=== PATIENT | male | born 1985 | race African-American/Black ===

== ENCOUNTER 2023-04-05 11:22 | Emergency (ER) | payer SELFPAY ==
[2023-04-05 12:56] LABS: Absolute Lymphocytes (CBC) 2.6 K/uL (0.7-4.9); Hematocrit 48.2 % (39.6-49.0); Lymphocytes % 32.2 % (15.3-44.8); MCV 92.1 fL (80-100); MPV 8.8 fL (7.6-11.3); Platelets 171 thou/uL (152-406); RBC Red Blood Cell Count 5.23 M/uL (4.33-5.43)
[2023-04-05 13:08] LABS: Albumin 3.8 g/dL (3.4-5.0); Bilirubin Total 0.4 mg/dL (0.2-1.0); Potassium 4.5 mEq/L (3.5-5.1); Protein, Total 6.6 g/dL (6.4-8.2)
--- NOTE | 2023-04-05 14:36 | EDPHYS ---
Physician Documentation [facility] Name: Tati Quevedo Age: 37 yrs Sex: Male : 1985 Arrival Date: 04/05/2023 Time: 11:22 Bed Treatment Private MD: ED Physician Marcos Zavaleta HPI: 04/05 12:14 This 37 yrs old Black Male presents to ER via Ambulatory with complaints of Check Up. ec2 12:14 Patient arrives today for general wellness check. States that several her problem today ec2 is that he has diffuse itching, states that he believes is related to his cats. States he recently had a cat approximately 2 weeks ago and states he is feeling paresthesias. Patient reports no abdominal pain, no nausea or vomiting, denies any other concerns.. Historical: - Allergies: 11:35 No Known Allergies; nj1 - PMHx: 11:35 Seizure; nj1 - Immunization history:: Client reports receiving the 2nd dose of the Covid vaccine. - Social history:: Smoking status: Reported history of juuling and/or vaping. ROS: 12:14 Constitutional: as per hpi ec2 Exam: 12:14 Constitutional: GEN: NAD Head: atraumatic Eyes: EOMI Ears: External ears are ec2 normal. CV: regular rate LUNGS: no respiratory distress ABD: non-distended SKIN: no evidence of rashes MSK: no evidence of trauma NEURO: moves all extremities equally Vital Signs: 11:32 BP 130 / 83; Pulse 88; Resp 17; Temp 98.5; Pulse Ox 100% ; Weight 88.9 kg; Height 5 ft. nj1 8 in. ; 11:32 Body Mass Index 29.80 (88.90 kg, 172.72 cm) nj1 MDM: 12:05 Patient medically screened. ec2 12:14 Data reviewed: vital signs. ED course: Patient arrives today due to concern for itching ec2 as well as a wellness evaluation. Examination remarkable for well-appearing nontoxic dividual's otherwise in no acute distress. Will obtain basic lab work to evaluate for electrolyte disturbances or organ dysfunction.. 12:47 ED course: Patient also expresses concern for HIV, unclear for reasons, will add on ec2 additional STI testing as patient has been intentionally or unintentionally vague about his symptoms and his concerns.. 13:11 ED course: Metabolic profile is reassuring. Reassuring CBC. . ec2 14:34 ED course: On assessment patient is well-appearing in no acute distress, in regards to ec2 the patient's itching I will start him on Atarax as well as prednisone, patient will return for results of his infectious workup.. 04/05 12:14 Order name: CBC with Diff; Complete Time: 13:10 ec2 04/05 12:14 Order name: CMP; Complete Time: 13:10 ec2 04/05 12:30 Order name: HIVc ec2 04/05 12:30 Order name: Hep Panel ec2 04/05 12:30 Order name: Rpr ec2 04/05 12:30 Order name: GC (Martin/Chl) Probe URINE ec2 Administered Medications: No medications were administered Disposition Summary: 04/05/23 14:35 Discharge Ordered Notes: Location: Home ec2 Condition: Stable ec2 Diagnosis - Allergic contact dermatitis due to animal (cat) (dog) dander ec2 Followup: ec2 - With: Private Physician - When: - Reason: Recheck today's complaints Discharge Instructions: - Discharge Summary Sheet ec2 - Allergies, Adult ec2 Forms: - Medication Reconciliation Form ec2 - Thank You Letter ec2 - Antibiotic Education ec2 - Prescription Opioid Use ec2 - Patient Portal Instructions ec2 - Leadership Thank You Letter ec2 Prescriptions: - Hydroxyzine HCl 25 mg Oral Tablet - take 1 tablet ORAL route every 6 hours As needed; 30 tablet; Refills: 0, ec2 Product Selection Permitted - Prednisone 20 mg Oral Tablet - take 1 tablet ORAL route once daily for 5 days; 5 tablet; Refills: 0, Product ec2 Selection Permitted Signatures: Dispatcher [employer] Tait Clay RN RN nj1 Marcos Zavaleta MD MD ec2
--- NOTE | 2023-04-05 14:36 | ER ---
Nurse's Notes [facility] Name: Tati Quevedo Age: 37 yrs Sex: Male : 1985 Arrival Date: 04/05/2023 Time: 11:22 Bed Treatment Private MD: Diagnosis: Allergic contact dermatitis due to animal (cat) (dog) dander Presentation: 04/05 11:32 Chief complaint: Patient states: I want to get a check up "everything". No problems or nj1 symptoms. Tingling/itching on chest, given abx for it, will go away but then it will come back again. Sometimes it also "on my legs". Denies itching/tingling sensation right now. States this has been going on for a few weeks. Coronavirus screen: Vaccine status: Patient reports receiving the 2nd dose of the covid vaccine. Ebola Screen: Patient denies travel to an Ebola-affected area in the 21 days before illness onset. Initial Sepsis Screen: Does the patient meet any 2 criteria? No. Patient's initial sepsis screen is negative. Does the patient have a suspected source of infection? No. Patient's initial sepsis screen is negative. Risk Assessment: Do you want to hurt yourself or someone else?. Onset of symptoms was February 2023. 11:32 Method Of Arrival: Ambulatory nj1 11:32 Acuity: MARKUS 4 nj1 Triage Assessment: 14:57 General: Appears in no apparent distress. Behavior is cooperative, appropriate for age, bp anxious. Pain: Denies pain. Historical: - Allergies: 11:35 No Known Allergies; nj1 - PMHx: 11:35 Seizure; nj1 - Immunization history:: Client reports receiving the 2nd dose of the Covid vaccine. - Social history:: Smoking status: Reported history of juuling and/or vaping. Screenin:57 [facility] ED Fall Risk Assessment (Adult) History of falling in the last 3 months, bp including since admission No falls in past 3 months (0 pts). Abuse screen: Denies threats or abuse. Denies injuries from another. Nutritional screening: No deficits noted. Tuberculosis screening: No symptoms or risk factors identified. Vital Signs: 11:32 BP 130 / 83; Pulse 88; Resp 17; Temp 98.5; Pulse Ox 100% ; Weight 88.9 kg; Height 5 ft. nj1 8 in. ; 11:32 Body Mass Index 29.80 (88.90 kg, 172.72 cm) [facility] ED Course: 11:28 Patient arrived in ED. mg5 11:34 Marcos Zavaleta MD is Attending Physician. ec2 11:35 Triage completed. nj1 11:36 Arm band placed on right wrist. nj1 11:59 Rafael Leigh, RN is Primary Nurse. bp 14:57 Patient has correct armband on for positive identification. bp 14:57 No provider procedures requiring assistance completed. Patient did not have IV access bp during this emergency room visit. Administered Medications: No medications were administered Medication: 14:57 VIS not applicable for this client. bp Outcome: 14:35 Discharge ordered by . ec2 14:57 Discharged to home ambulatory, bp 14:57 Condition: stable 14:57 Discharge instructions given to patient, Instructed on discharge instructions, follow up and referral plans. medication usage, Demonstrated understanding of instructions, follow-up care, medications, Prescriptions given X 2, 14:58 Patient left the ED. bp Signatures: Rafael Leigh, RN RN bp Tati Navarro, RN RN [address] Marcos Zavaleta MD MD 2
[2023-04-05 14:54] LABS: Hepatitis B Core IgM Nonreactive (Nonreactive); Hepatitis B surface AG Interp. Nonreactive (Nonreactive); Hepatitis C Virus Ab Nonreactive (Nonreactive)
[2023-04-05 15:08] VITALS: BP 130/83; TEMP 98.5; O2SAT 100
[2023-04-06 06:16] LABS: RPR (Rapid Plasma Reagin) NON-REACT (NON-REACT)
[2023-04-08 08:56] LABS: C.trachomatis RNA,TMA Not Detected (Not Detected)
== END 2023-04-05 14:58 | disposition home or self-care (01) ==
LOC: ER 11:22
DX: L23.81 Allergic contact dermatitis due to animal (cat) (dog) dander (principal)
CPT/HCPCS: 36415; 80053; 80074; 85025; 86592; 87389; 87490; 87590; 99283

== ENCOUNTER → 2023-05-18 | Emergency (ER) | payer SELFPAY ==
[~2023-05-18] MED LIST: KETOROLAC 30 MG/ML INJ ONE; LORazepam 2 MG/ML VIAL ONE; NA CHLORIDE 0.9% 1,000 ML ONE
[2023-05-18 14:53] LABS: Absolute Lymphocytes (CBC) 2.5 K/uL (0.7-4.9); Hematocrit 45.8 % (39.6-49.0); Lymphocytes % 36.2 % (15.3-44.8); MPV 8.4 fL (7.6-11.3); Platelets 226 thou/uL (152-406); RBC Red Blood Cell Count 5.14 M/uL (4.33-5.43)
[2023-05-18 15:12] LABS: Potassium 3.8 mEq/L (3.5-5.1); Troponin High Sensitivity 23.3 pg/mL (<58.9)
--- NOTE | 2023-05-18 15:19 | RAD REPORT ---
EXAM DESCRIPTION: RAD - Chest Single View - 05/18/2023 3:14 pm CLINICAL HISTORY: CHEST PAIN Chest pain. COMPARISON: No comparisons FINDINGS: Portable technique limits examination quality. The lungs are grossly clear. The heart is normal in size. No displaced fractures. IMPRESSION: No acute intrathoracic process suspected.
[2023-05-18 15:21] LABS: Barbiturates NEGATIVE (NEGATIVE); Benzodiazepines NEGATIVE (NEGATIVE); Cocaine NEGATIVE (NEGATIVE); METHAMPHETAM NEGATIVE (NEGATIVE); Methadone NEGATIVE (NEGATIVE); Opiates NEGATIVE (NEGATIVE); Phencyclidine NEGATIVE (NEGATIVE); THC Cannibis POSITIVE (NEGATIVE)
--- NOTE | 2023-05-18 19:24 | ER ---
Nurse's Notes [facility] Name: Tati Quevedo Age: 37 yrs Sex: Male : 1985 Arrival Date: 05/18/2023 Time: 14:36 Bed 7 Private MD: Diagnosis: Chest pain, unspecified Presentation: 05/18 14:38 Chief complaint: EMS states: Left sided chest pain that started this morning. rs5 Coronavirus screen: At this time, the client does not indicate any symptoms associated with coronavirus-19. Ebola Screen: No symptoms or risks identified at this time. Initial Sepsis Screen: Does the patient meet any 2 criteria? No. Patient's initial sepsis screen is negative. Does the patient have a suspected source of infection? No. Patient's initial sepsis screen is negative. Risk Assessment: Do you want to hurt yourself or someone else? Patient reports no desire to harm self or others. Onset of symptoms was May 18, 2023. Care prior to arrival: Medication(s) given: ASA, 81 mg, x 4, IV initiated. 20 GA, in the left antecubital area. 14:38 Method Of Arrival: EMS: [facility] rs5 14:38 Acuity: MARKUS 3 rs5 Historical: - Allergies: 14:40 No Known Allergies; ld1 - PMHx: 14:40 Seizure; ld1 - PSHx: 14:40 None; ld1 - Immunization history:: Adult Immunizations up to date. - Social history:: Smoking status: Patient denies any tobacco usage or history of. Patient/guardian denies using alcohol. Screenin:40 [facility] ED Fall Risk Assessment (Adult) History of falling in the last 3 months, ld1 including since admission No falls in past 3 months (0 pts). Abuse screen: Denies threats or abuse. Denies injuries from another. Nutritional screening: No deficits noted. Tuberculosis screening: No symptoms or risk factors identified. Assessment: 14:39 General: Appears in no apparent distress. comfortable, Behavior is calm, cooperative, ld1 appropriate for age. Pain: Complains of pain in chest Pain does not radiate. Pain currently is 8 out of 10 on a pain scale. Quality of pain is described as throbbing, Pain began 1 hour ago. Is intermittent. Neuro: Level of Consciousness is awake, alert, obeys commands, Oriented to person, place, time, situation. Cardiovascular: Reports chest pain, Capillary refill < 3 seconds Patient's skin is warm and dry. Rhythm is sinus rhythm Chest pain is described as mild. Respiratory: Airway is patent Respiratory effort is even, unlabored. GI: Abdomen is flat, non-distended. : No signs and/or symptoms were reported regarding the genitourinary system. EENT: No signs and/or symptoms were reported regarding the EENT system. Derm: No signs and/or symptoms reported regarding the dermatologic system. Musculoskeletal: No signs and/or symptoms reported regarding the musculoskeletal system. 14:40 Reassessment: Pt states "I get the pain, but just sometimes, it comes and goes". rs5 16:50 Reassessment: Patient and/or family updated on plan of care and expected duration. Pain rs5 level reassessed. Patient is alert, oriented x 3, equal unlabored respirations, skin warm/dry/pink. Patient denies pain at this time. 17:59 Reassessment: No changes from previously documented assessment. rs5 18:30 Reassessment: Patient and/or family updated on plan of care and expected duration. Pain rs5 level reassessed. Patient is alert, oriented x 3, equal unlabored respirations, skin warm/dry/pink. Pain: Denies pain. Cardiovascular: Rhythm is regular. Respiratory: Respiratory effort is even, unlabored, Respiratory pattern is regular, symmetrical. 19:57 Reassessment: Patient appears in no apparent distress at this time. Patient and/or jb4 family updated on plan of care and expected duration. Pain level reassessed. Patient is alert, oriented x 3, equal unlabored respirations, skin warm/dry/pink. Vital Signs: 14:38 BP 148 / 97; Pulse 88; Resp 18; Temp 98.1(O); Pulse Ox 99% on R/A; rs5 14:40 BP 148 / 97; Pulse 91; Resp 18; Pulse Ox 99% on R/A; ld1 14:40 Pain 7/10; ld1 14:42 Weight 89.81 kg; ld1 14:43 Height 5 ft. 8 in. ; ld1 15:59 BP 139 / 102; Pulse 71; Resp 18; Pulse Ox 97% on R/A; ld1 17:17 BP 142 / 97; Pulse 78; Resp 18; Pulse Ox 99% on R/A; ld1 18:49 BP 118 / 63; Pulse 75; Resp 18; Pulse Ox 100% on R/A; ld1 14:40 Pain Scale: Adult ld1 ED Course: 14:37 Patient arrived in ED. ld1 14:38 Lee Ashby PA is PHCP. cp 14:38 Pasquale Malcolm MD is Attending Physician. cp 14:38 Edilberto Quick RN is Primary Nurse. rs5 14:38 No provider procedures requiring assistance completed. Maintain EMS IV. Dressing ld1 intact. Good blood return noted. Site clean \\T\\ dry. Gauge \\T\\ site: 20G LAC. Patient maintains SpO2 saturation greater than 95% on room air. 14:40 Patient has correct armband on for positive identification. Placed in gown. Bed in low ld1 position. Call light in reach. Side rails up X2. quality assurance monitor final on. Pulse ox on. NIBP on. Door closed. Noise minimized. Warm blanket given. 14:42 Triage completed. rs5 14:43 Arm band placed on right wrist. ld1 15:16 XRAY Chest (1 view) In Process Unspecified. EDMS 18:57 Troponin High Sensitivity Sent. rs5 19:57 IV discontinued, intact, bleeding controlled, No redness/swelling at site. Pressure jb4 dressing applied. Administered Medications: 15:05 Drug: NS 0.9% IV 1000 ml IV at 1 bolus Per protocol; 1000 mL bolus Route: IV; Rate: 1 rs5 bolus; Site: left antecubital; 15:30 Follow up: Response: No adverse reaction rs5 15:05 Drug: Ketorolac IVP 15 mg IVP once Route: IVP; Site: left antecubital; rs5 15:30 Follow up: Response: No adverse reaction; Pain is decreased rs5 15:05 Drug: Ativan IVP 1 mg IVP once Route: IVP; Site: left antecubital; rs5 15:30 Follow up: Response: No adverse reaction; Anxiety decreased rs5 Medication: 14:40 VIS not applicable for this client. ld1 Outcome: 19:24 Discharge ordered by . cp 19:57 Discharged to home via wheelchair, jb4 19:57 Condition: stable 19:57 Discharge instructions given to patient, Instructed on discharge instructions, follow up and referral plans. Demonstrated understanding of instructions, follow-up care, 19:57 Patient left the ED. jb4 Signatures: Dispatcher [employer] EDMS Lee Ashby PA PA cp Bryson, James, RN RN jb4 Mireya Cantrell RN RN ld1 Edilberto Quick RN RN rs5 Corrections: (The following items were deleted from the chart) 16:54 14:39 Pain: Complains of pain in chest Pain does not radiate. Pain currently is 8 out rs5 of 10 on a pain scale. Quality of pain is described as throbbing, Pain began 1 hour ago. Is continuous, ld1
--- NOTE | 2023-05-18 19:24 | EDPHYS ---
Physician Documentation [facility] Name: Tati Quevedo Age: 37 yrs Sex: Male : 1985 Arrival Date: 05/18/2023 Time: 14:36 Bed 7 Private MD: ED Physician Pasquale Malcolm HPI: 05/18 14:55 This 37 yrs old Black Male presents to ER via EMS with complaints of Chest Pain. cp 14:55 The patient or guardian reports chest pain that is located primarily in the anterior cp chest wall, left. 14:55 The pain does not radiate. The chest pain is described as sharp. Duration: The patient cp or guardian reports a single episode, that is still ongoing, and unchanged, started SALES MARKETING DIRECTOR. 14:55 Associated signs and symptoms: Pertinent positives: shortness of breath, Pertinent cp negatives: abdominal pain, cough, lower extremity pain, lower extremity swelling. Severity of pain: in the emergency department the pain is unchanged despite EMS interventions. Historical: - Allergies: 14:40 No Known Allergies; ld1 - PMHx: 14:40 Seizure; ld1 - PSHx: 14:40 None; ld1 - Immunization history:: Adult Immunizations up to date. - Social history:: Smoking status: Patient denies any tobacco usage or history of. Patient/guardian denies using alcohol. ROS: 15:00 Constitutional: Negative for body aches, chills, fever, poor PO intake, cp 15:00 Cardiovascular: Positive for chest pain, Negative for edema, palpitations, cp 15:00 Eyes: Negative for injury, pain, redness, and discharge, cp 15:00 ENT: Negative for drainage from ear(s), ear pain, sore throat, difficulty swallowing, difficulty handling secretions, 15:00 Respiratory: Positive for shortness of breath, Negative for cough, wheezing, 15:00 Abdomen/GI: Negative for abdominal pain, vomiting, diarrhea, constipation, 15:00 Back: Negative for pain at rest, radiated pain, 15:00 Skin: Negative for rash, 15:00 Neuro: Negative for altered mental status, dizziness, headache, loss of consciousness, syncope, weakness, 15:00 All other systems are negative, Exam: 14:47 ECG was reviewed by the Attending Physician. cp 15:05 Constitutional: The patient appears in no acute distress, alert, awake, cp non-diaphoretic, non-toxic, well developed, well nourished, anxious, uncomfortable, 15:05 Head/Face: Normocephalic, atraumatic. cp 15:05 Eyes: Periorbital structures: appear normal, Conjunctiva: normal, no exudate, no injection, Sclera: no appreciated abnormality, Lids and lashes: appear normal, bilaterally, 15:05 ENT: External ear(s): are unremarkable, Nose: is normal, Mouth: Lips: moist, Oral mucosa: pink and intact, moist, Posterior pharynx: is normal, airway is patent, no erythema, no exudate, 15:05 Neck: ROM/movement: is normal, is supple, without pain, no range of motions limitations, 15:05 Chest/axilla: Inspection: normal, Palpation: crepitus, is not appreciated, tenderness, that is moderate, of the anterior aspect of left upper chest, 15:05 Cardiovascular: Rate: normal, Rhythm: regular, Pulses: Pulses are 2+ in right radial artery and left radial artery. Edema: is not appreciated, JVD: is not appreciated, 15:05 Respiratory: the patient does not display signs of respiratory distress, Respirations: normal, no use of accessory muscles, no retractions, labored breathing, is not present, Breath sounds: are clear throughout, no decreased breath sounds, no stridor, no wheezing, 15:05 Abdomen/GI: Inspection: abdomen appears normal, Bowel sounds: active, all quadrants, Palpation: abdomen is soft and non-tender, in all quadrants, 15:05 Back: pain, is absent, ROM is normal, 15:05 Neuro: Orientation: to person, place \T\ time. Mentation: is normal, Vital Signs: 14:38 BP 148 / 97; Pulse 88; Resp 18; Temp 98.1(O); Pulse Ox 99% on R/A; rs5 14:40 BP 148 / 97; Pulse 91; Resp 18; Pulse Ox 99% on R/A; ld1 14:40 Pain 7/10; ld1 14:42 Weight 89.81 kg; ld1 14:43 Height 5 ft. 8 in. ; ld1 15:59 BP 139 / 102; Pulse 71; Resp 18; Pulse Ox 97% on R/A; ld1 17:17 BP 142 / 97; Pulse 78; Resp 18; Pulse Ox 99% on R/A; ld1 18:49 BP 118 / 63; Pulse 75; Resp 18; Pulse Ox 100% on R/A; ld1 14:40 Pain Scale: Adult ld1 MDM: 14:38 Patient medically screened. 19:24 Data reviewed: vital signs, nurses notes, lab test result(s), EKG, radiologic studies, cp plain films, and as a result, I will discharge patient. 19:24 Differential diagnosis: abnormal EKG, acute myocardial infarction, pericarditis, cp pleurisy, pneumonia, pneumothorax, pulmonary embolus. I considered the following discharge prescriptions or medication management in the emergency department Medications were administered in the Emergency Department. See MAR. Independent interpretation of the following test(s) in the Emergency Department EKG: See my EKG interpretation above. Counseling: I had a detailed discussion with the patient and/or guardian regarding the historical points, exam findings, and any diagnostic results supporting the discharge/admit diagnosis, lab results, radiology results, to return to the emergency department if symptoms worsen or persist or if there are any questions or concerns that arise at home. Special discussion: Based on the patient's history, exam, and Dx evaluation, there is no indication for emergent intervention or inpatient Tx. It is understood by the patient/guardian that if the Sx's persist or worsen they need to return immediately for re-evaluation. 05/18 14:38 Order name: Basic Metabolic Panel; Complete Time: 15:35 [facility] 05/18 15:35 Interpretation: Normal except: GLUC 116; CRE 1.63; GFR 55. 05/18 14:38 Order name: CBC with Diff; Complete Time: 15:35 [facility] 05/18 15:36 Interpretation: Reviewed. 05/18 14:38 Order name: Troponin HS; Complete Time: 15:35 [facility] 05/18 14:54 Order name: CK; Complete Time: 15:35 05/18 14:54 Order name: UDS; Complete Time: 15:35 05/18 15:36 Interpretation: Normal except: THC POSITIVE. 05/18 14:54 Order name: D-Dimer; Complete Time: 15:35 05/18 15:36 Interpretation: Reviewed. 05/18 18:34 Order name: Troponin High Sensitivity; Complete Time: 19:23 cp 05/18 14:38 Order name: XRAY Chest (1 view); Complete Time: 15:35 05/18 14:38 Order name: EKG; Complete Time: 14:38 05/18 14:38 Order name: Cardiac monitoring; Complete Time: 14:38 05/18 14:38 Order name: EKG - Nurse/Tech; Complete Time: 14:42 05/18 14:38 Order name: IV Saline Lock; Complete Time: 14:38 05/18 14:38 Order name: Labs collected and sent; Complete Time: 14:38 05/18 14:38 Order name: O2 Per Protocol; Complete Time: 14:38 05/18 14:38 Order name: O2 Sat Monitoring; Complete Time: 14:38 ld EC:47 Rate is 89 beats/min. Rhythm is regular. KS interval is normal. QRS interval is normal. cp QT interval is normal. T waves are Inverted in lead aVR. Interpreted by me. Reviewed by me. Administered Medications: 15:05 Drug: NS 0.9% IV 1000 ml IV at 1 bolus Per protocol; 1000 mL bolus Route: IV; Rate: 1 rs5 bolus; Site: left antecubital; 15:30 Follow up: Response: No adverse reaction rs5 15:05 Drug: Ketorolac IVP 15 mg IVP once Route: IVP; Site: left antecubital; rs5 15:30 Follow up: Response: No adverse reaction; Pain is decreased rs5 15:05 Drug: Ativan IVP 1 mg IVP once Route: IVP; Site: left antecubital; rs5 15:30 Follow up: Response: No adverse reaction; Anxiety decreased rs5 Disposition: 18:59 Co-signature as Attending Physician, Pasquale Malcolm MD I agree with the assessment sp4 and plan of care. I reviewed the patient's care provided by the Advanced Practice Provider and agree with the diagnosis and treatment plan. Disposition Summary: 05/18/23 19:24 Discharge Ordered Notes: Location: Home cp Problem: new cp Symptoms: have improved cp Condition: Stable cp Diagnosis - Chest pain, unspecified cp Followup: cp - With: Private Physician - When: 2 - 3 days - Reason: Recheck today's complaints Discharge Instructions: - Discharge Summary Sheet cp - Nonspecific Chest Pain, Adult cp - Aspirin and Your Heart cp Forms: - Medication Reconciliation Form cp - Thank You Letter cp - Antibiotic Education cp - Prescription Opioid Use cp - Patient Portal Instructions cp - Leadership Thank You Letter cp Signatures: Dispatcher [employer] Lee Lockwood PA PA cp Sims, Lauren, RN RN ld1 Edilberto Quick RN RN rs5 Pasquale Malcolm MD MD sp4
[2023-05-18 21:09] VITALS: BP 118/63; TEMP 98.1; O2SAT 100
== END ==
LOC: ER 14:36
DX: R07.89 Other chest pain (principal)
CPT/HCPCS: 36415; 71045; 80048; 80307; 82550; 84484; 85025; 85379; 93005; J7030